=== PATIENT | female | born 1955 | race Caucasian/White ===

== ENCOUNTER → 2017-04-23 | Outpatient (CLI) | payer OTHER ==
[~2017-04-23] MED LIST: ASPI-496 PO; ASPI-650 PO; DIAZ5TAB PO; DOCU-30 PO; ESTR1PAT45 TD; ESTR1PAT49 TD; FENO145T13 PO; GLUC-149 PO; HYDR-3240 PO; METO-93 PO; OLME1TAB5 PO; OMEG1CAP23 PO; ROSU10TA PO; TRAM50TA2 PO
[2017-04-23 09:17] LABS: HEMATOCRIT 35.2 % (34.6-47.8); HEMOGLOBIN 11.7 g/dL (11.7-16.4); WHITE BLOOD COUNT 7.2 x10^3/uL (3.4-10)
[2017-04-23 09:30] LABS: BLOOD UREA NITROGEN 23 mg/dL (7-18)
[2017-04-23 09:33] LABS: ASPARTATE AMINO TRANSFERASE 27 U/L (15-37)
[2017-04-23 10:19] LABS: HIV 1&2 ANTIBODY SCREEN Nonreactive (Nonreactive); HIV-1 p24 ANTIGEN Nonreactive (Nonreactive)
== END | disposition home or self-care (01) ==
LOC: STAR 07:57
PROVIDERS: ATTEND Orthopaedic Surgery
DX: Z01.818 Encounter for other preprocedural examination (principal); M17.12 Unilateral primary osteoarthritis, left knee; R79.1 Abnormal coagulation profile; Z79.899 Other long term (current) drug therapy
CPT/HCPCS: 36415; 80053; 81003; 83036; 85025; 85610; 85730; 86703; 87081; 87899; 93005; G0435

== ENCOUNTER 2017-05-04 05:36 | Inpatient (IN) | payer OTHER ==
[~2017-05-04] VITALS: Ht 175.3 cm; Wt 99.5 kg
[~2017-05-04 05:36] MED LIST changes: +DOCU-131 PO; -DOCU-30 PO; +OLME1TAB28 PO; -OLME1TAB5 PO
[2017-05-04] MEDS ORDERED: VANCOMYCIN PER PHARMACY MC STA (05:51)
[2017-05-04] MEDS ORDERED: VANCOMYCIN 1,400 MG in SODIUM CHLORIDE 0.9% 250 ML IV ONE (06:00)
[2017-05-04] MEDS ORDERED: LACTATED RINGERS 1,000 ML IV SCH (06:05)
[2017-05-04] MEDS ORDERED: BUPIVACAINE/PF 0.25% ONE (06:20)
[2017-05-04] MEDS ORDERED: PNEUMOCOCCAL 23 VACCINE IM-VACC ONE (06:30)
[2017-05-04] MEDS ORDERED: MIDAZOLAM 1 MG/ML, 2ML ONE (06:32)
[2017-05-04] MEDS ORDERED: FENTANYL PF 100 MCG/2ML ONE (06:32)
[2017-05-04] MEDS ORDERED: ROPIvacaine/PF 0.2%, 20 ML ONE (06:42)
[2017-05-04] MEDS ORDERED: TRANEXAMIC ACID 100 MG/ML, 10ML ONE ×4 (06:42→06:43)
[2017-05-04] MEDS ORDERED: KETOROLAC 60 MG/2 ML ONE (06:42)
[2017-05-04] MEDS ORDERED: EPINEPHRINE 1 MG/ML, 1ML ONE (06:43)
[2017-05-04] MEDS ORDERED: SODIUM CHLORIDE 0.9% 50 ML ONE (06:43)
[2017-05-04] MEDS ORDERED: VANCOMYCIN 1,000 MG ONE (06:43)
[2017-05-04] MEDS ORDERED: SCOPOLAMINE PATCH, 1.5MG PATCH.TD72 TD ONE ×2 (06:52)
[2017-05-04] MEDS ORDERED: OxyconTIN ER 10 MG TAB.ER PO STA (07:00)
[2017-05-04] MEDS ORDERED: OxyconTIN ER 10 MG TAB.ER ONE (07:04)
[2017-05-04] MEDS ORDERED: PROPOFOL 10 MG/ML, 20ML ONE (07:11)
[2017-05-04] MEDS ORDERED: DEXAMETHASONE 4 MG/ML, 1ML ONE (07:11)
[2017-05-04] MEDS ORDERED: CEFAZOLIN 1,000 MG ONE (07:11)
[2017-05-04] MEDS ORDERED: ONDANSETRON 2MG/ML, 2ML ONE (07:11)
[2017-05-04] MEDS ORDERED: PHENYLEPHRINE 10 MG/ML ONE (07:11)
[2017-05-04] MEDS ORDERED: METOCLOPRAMIDE 5 MG/ML, 2ML ONE (07:11)
[2017-05-04] MEDS ORDERED: LABETALOL 5MG/ML, 20ML IV PRN (08:00)
[2017-05-04] MEDS ORDERED: MIDAZOLAM 1 MG/ML, 2ML IV PRN (08:00)
[2017-05-04] MEDS ORDERED: ONDANSETRON 2MG/ML, 2ML IVPush PRN (08:00)
[2017-05-04] MEDS ORDERED: HYDROmorphone 1 MG/ML, 1ML IV PRN ×2 (08:00→09:30)
[2017-05-04] MEDS ORDERED: MEPERIDINE/PF 25MG/0.5ML IVPush PRN (08:00)
[2017-05-04] MEDS ORDERED: hydrALAzine 20 MG/ML, 1ML IV PRN (08:00)
[2017-05-04] MEDS ORDERED: PROMETHAZINE 25 MG/ML, 1ML IV PRN (08:00)
[2017-05-04] MEDS ORDERED: FENTANYL PF 100 MCG/2ML IV PRN (08:00)
[2017-05-04] MEDS ORDERED: OXYcodone 5 MG/5 ML ORAL.SOL UDC PO PRN (08:00)
[2017-05-04] MEDS ORDERED: ALBUTEROL/IPRATROPIUM 2.5MG/0.5MG, 3 ML NPPB PRN (08:00)
[2017-05-04] MEDS ORDERED: ACETAMINOPHEN 325 MG TABLET PO PRN (08:00)
[2017-05-04] MEDS ORDERED: HYDROmorphone 2 MG/ML, 1ML ONE (08:02)
[2017-05-04] MEDS ORDERED: VANCOMYCIN PMX 1GM/200ML 200 ML IVPB SCH (09:30)
[2017-05-04] MEDS ORDERED: OXYcodone IR 5MG TABLET PO PRN (09:30)
[2017-05-04] MEDS ORDERED: BISACODYL 10 MG SUPP PR PRN (09:30)
[2017-05-04] MEDS ORDERED: MAGNESIUM HYDROXIDE 8%, 30ML UDC PO PRN (09:30)
[2017-05-04] MEDS ORDERED: SENNA/DOCUSATE TABLET PO PRN (09:30)
[2017-05-04] MEDS ORDERED: ONDANSETRON 2MG/ML, 2ML IV PRN (09:30)
[2017-05-04] MEDS ORDERED: ACETAMINOPHEN 650 MG/20.3 ML UDC PO PRN (09:30)
[2017-05-04] MEDS ORDERED: DIPHENHYDRAMINE 50 MG CAPSULE PO PRN (09:30)
[2017-05-04] MEDS ORDERED: ONDANSETRON 4 MG TABLET PO PRN (09:30)
[2017-05-04] MEDS ORDERED: DIAZEPAM 5 MG TABLET PO PRN (09:30)
[2017-05-04] MEDS: D5%-0.45NACL+KCL 20MEQ 1,000 ML IV SCH ×2 (13:25→21:50)
[2017-05-04 15:07] VITALS: BP 104/48
[2017-05-04] MEDS: CEFAZOLIN PMX 1GM/50ML 50 ML IVPB SCH ×2 (15:20→23:28)
[2017-05-04] MEDS: METOPROLOL SUCCINATE 50 MG TAB.ER.24H PO SCH (18:00)
[2017-05-04] MEDS: ASPIRIN 81 MG TABLET EC PO SCH (18:00)
[2017-05-04] MEDS ORDERED: VANCOMYCIN PMX 1GM/200ML 200 ML IVPB ONE (18:45)
[2017-05-04 20:00] VITALS: BP 108/72
[2017-05-04] MEDS: DOCUSATE 100 MG CAPSULE PO SCH (20:40)
[2017-05-04] MEDS ORDERED: CRESTOR 10 MG PO SCH (21:00)
[2017-05-05 00:09] VITALS: BP 103/66
[2017-05-05 04:00] VITALS: BP 116/71
[2017-05-05] MEDS: D5%-0.45NACL+KCL 20MEQ 1,000 ML IV SCH (05:20)
[2017-05-05 05:48] LABS: HEMATOCRIT 28.7 % (34.6-47.8); HEMOGLOBIN 9.4 g/dL (11.7-16.4)
[2017-05-05] MEDS: ASPIRIN 81 MG TABLET EC PO SCH (05:59)
[2017-05-05] MEDS: METOPROLOL SUCCINATE 50 MG TAB.ER.24H PO SCH (05:59)
[2017-05-05] MEDS ORDERED: DEXAMETHASONE 4 MG/ML, 1ML IVPush SCH (06:00)
[2017-05-05 07:32] VITALS: BP 119/71
[2017-05-05] MEDS ORDERED: BENICAR HCT PO SCH (09:00)
[2017-05-05] MEDS ORDERED: FENOFIBRATE 145 MG TABLET PO SCH (09:00)
[2017-05-05] MEDS: DOCUSATE 100 MG CAPSULE PO SCH (09:21)
[2017-05-05] MEDS ORDERED: KETOROLAC 30 MG/1 ML IV SCH (09:30)
[2017-05-05] MEDS ORDERED: ASPI-621 PO (11:40)
[2017-05-05] MEDS ORDERED: CELE200C PO (11:40)
[2017-05-05] MEDS ORDERED: DOCU-131 PO (11:41)
[2017-05-05] MEDS ORDERED: ONDA4TAB10 PO (11:41)
[2017-05-05] MEDS ORDERED: DIAZ5TAB PO (11:42)
[2017-05-05] MEDS ORDERED: TRAM50TA2 PO (11:43)
[2017-05-05] MEDS ORDERED: OXYC5CAP2 PO (11:44)
== END 2017-05-05 12:10 | disposition home or self-care (01) | DRG 470 ==
LOC: ORIP 05:36 → 4NOR 11:57 → DCLOUNGE 05-05 11:37
PROVIDERS: ADMIT Orthopaedic Surgery; ATTEND Orthopaedic Surgery
PROC: 0SRD0J9 Replacement of Left Knee Joint with Synthetic Substitute, Cemented, Open Approach (ICD-10-PCS; principal; 2017-05-04 07:30)
DX: M17.12 Unilateral primary osteoarthritis, left knee (principal); I10 Essential (primary) hypertension
CPT/HCPCS: 36415; 85014; 85018; J0171; J0690; J1100; J1170; J1885; J2250; J2405; J2704; J2795; J3010; J3370; J3490; J2370; J2765; J3480; J7050; J7120